=== PATIENT | female | born 1980 | race Caucasian/White ===

== ENCOUNTER 2019-08-31 08:06 | Outpatient (CLI) | payer BC ==
--- NOTE | 2019-08-31 09:08 | ULT ---
ULTRASOUND ABDOMEN LIMITED: (RIGHT UPPER QUADRANT) DATE: 08/31/2019 HISTORY: 38-year-old female with right upper quadrant abdominal pain FINDINGS: Gallbladder:Contracted around gallstones. Thickened, of variable wall, 2 mm in certain areas and up t o 5 mm in other areas. The thickening may be due to the contraction. No sonographic Sánchez's sign. Common duct: 5 mm. Liver:Normal Pancreas:No sonographic abnormality identified. Right kidney:No hydronephrosis IMPRESSION: Positive for cholelithiasis: Gallbladder contracted around multiple gallstones.
== END 2019-08-31 08:07 | disposition home or self-care (01) ==
LOC: BICULT 08:06
PROVIDERS: ATTEND Family Medicine
DX: R10.11 Right upper quadrant pain (principal); K80.20 Calculus of gallbladder without cholecystitis without obstruction
CPT/HCPCS: 76705

== ENCOUNTER 2019-12-25 16:30 | Outpatient (CLI) | payer BC | END 2019-12-25 16:31 | disposition home or self-care (01) | LOC: SLEEPLAB 16:30 | PROVIDERS: ATTEND Dentist General Practice | DX: G47.33 Obstructive sleep apnea (adult) (pediatric) (principal) | CPT/HCPCS: 95801 ==

== ENCOUNTER 2022-04-25 15:45 | Outpatient (CLI) | payer BC | END 2022-04-25 15:46 | disposition home or self-care (01) | LOC: BICRAD 15:45 | PROVIDERS: ATTEND Family Medicine | DX: R05.2 Subacute cough (principal) | CPT/HCPCS: 71046 ==